=== PATIENT | female | born 1950 | race Two or more races ===

== ENCOUNTER 2022-11-14 08:36 | Day surgery (SDC) | payer OTHER ==
[~2022-11-14] VITALS: Ht 165.1 cm; Wt 83.5 kg
[~2022-11-14 08:36] MED LIST: CLARITIN10 M1 PO; COZAAR50 MG PO; OMEPRA PO; VITAMIN D310 MCG/1 M PO; VITAMIN E400 UNI7 PO
== END 2022-11-14 15:40 | disposition home or self-care (01) ==
LOC: CIR.AMB 08:36
PROVIDERS: ATTEND Obstetrics & Gynecology
DX: C54.1 Malignant neoplasm of endometrium (principal); N84.0 Polyp of corpus uteri; N84.1 Polyp of cervix uteri; N95.0 Postmenopausal bleeding; Z20.822 Contact with and (suspected) exposure to COVID-19; I10 Essential (primary) hypertension

== ENCOUNTER 2023-01-25 15:16 | Outpatient (CLI) | payer OTHER | END 2023-01-25 15:18 | disposition home or self-care (01) | LOC: LAB 15:16 | DX: C54.1 Malignant neoplasm of endometrium (principal) ==

== ENCOUNTER 2023-01-27 07:27 | Outpatient (CLI) | payer OTHER | END 2023-01-27 10:25 | disposition home or self-care (01) | LOC: MRI 07:27 | PROVIDERS: ATTEND Obstetrics & Gynecology Gynecologic Oncology | DX: C54.1 Malignant neoplasm of endometrium (principal) | CPT/HCPCS: 72197; Q9965 ==

== ENCOUNTER 2023-02-03 07:59 | Outpatient (CLI) | payer OTHER | END 2023-02-03 08:08 | disposition home or self-care (01) | LOC: TOM 07:59 | PROVIDERS: ATTEND Obstetrics & Gynecology Gynecologic Oncology | DX: C54.1 Malignant neoplasm of endometrium (principal) | CPT/HCPCS: 71260; 74177; Q9965 ==

== ENCOUNTER 2023-04-06 07:45 | Inpatient (IN) | payer OTHER ==
[~2023-04-06] VITALS: Ht 165.1 cm; Wt 83.5 kg
[2023-04-06] MEDS ORDERED: COZAAR50 MG PO (09:47)
[2023-04-06 10:16] LABS: ALBUMIN 3.4 gm/dL (3.4-5.0); BILIRUBIN TOTAL 0.64 mg/dL (0.3-1.2); CALCIUM 9.2 mg/dL (8.5-10.1); CREATININE SERUM 0.8 mg/dL (0.55-1.02); GFR 70.91; GLOBULINA 4.2 G/DL (2.4-3.5); POTASSIUM 4.55 mEq/L (3.5-5.1); TOTAL PROTEIN 7.6 gm/dL (6.4-8.2)
[2023-04-06 10:19] LABS: INR 0.98; PARTIAL THROMBOPLASTIN TIME 26.3 SECONDS (22.0-34.0); PROTHROMBIN TIME 10.3 SECONDS (9.0-11.5)
[2023-04-13] MEDS ORDERED: LORATADINE10 MG (13:59)
[2023-04-13] MEDS ORDERED: OMEPRAZOLE20 MG (14:16)
[2023-04-13] MEDS ORDERED: ESTROVEN 155 M155 MG (14:17)
[2023-04-13] MEDS ORDERED: VITAMIN D310 MC4 (14:17)
[2023-04-13 19:50] LABS: HEMOGLOBIN 13.3 g/dL (12.0-15.00); MEAN CELL VOLUME 81.7 fL (80.00-100.00); MEAN CORPUSCULAR HEMOGLOBIN 27.3 pg (27.00-32.0); MEAN CORPUSCULAR HGB CONC 33.3 g/dl (32.0-36.0); PLATELET COUNT 317 K/uL (150-450); RED BLOOD COUNT 4.89 M/uL (4.00-6.00); RED CELL DISTRIBUTION WIDTH 14.1 % (11.5-14.5)
[2023-04-13 20:08] LABS: CALCIUM 9.1 mg/dL (8.5-10.1); CREATININE SERUM 1.31 mg/dL (0.55-1.02); GFR 40.14; POTASSIUM 4.47 mEq/L (3.5-5.1)
[2023-04-14 02:42] LABS: HEMATOCRIT 36.6 % (36.0-45.00); HEMOGLOBIN 12.3 g/dL (12.0-15.00); MEAN CELL VOLUME 81.6 fL (80.00-100.00); MEAN CORPUSCULAR HEMOGLOBIN 27.5 pg (27.00-32.0); MEAN CORPUSCULAR HGB CONC 33.7 g/dl (32.0-36.0); PLATELET COUNT 268 K/uL (150-450); RED BLOOD COUNT 4.49 M/uL (4.00-6.00); RED CELL DISTRIBUTION WIDTH 13.8 % (11.5-14.5)
[2023-04-14 02:50] LABS: CALCIUM 8.5 mg/dL (8.5-10.1); CREATININE SERUM 1.29 mg/dL (0.55-1.02); GFR 40.86; POTASSIUM 4.43 mEq/L (3.5-5.1)
== END 2023-04-14 13:44 | disposition home or self-care (01) | DRG 741 ==
LOC: O/R 04-13 06:17 → SURG 04-13 07:45 → OB/GYN 04-13 18:11
PROVIDERS: Obstetrics & Gynecology; ADMIT Obstetrics & Gynecology Gynecologic Oncology; ATTEND Obstetrics & Gynecology Gynecologic Oncology
PROC: 0UT74ZZ Resection of Bilateral Fallopian Tubes, Percutaneous Endoscopic Approach (ICD-10-PCS; 2023-04-13)
PROC: 0UT24ZZ Resection of Bilateral Ovaries, Percutaneous Endoscopic Approach (ICD-10-PCS; 2023-04-13)
PROC: 07BC4ZZ Excision of Pelvis Lymphatic, Percutaneous Endoscopic Approach (ICD-10-PCS; 2023-04-13)
PROC: 0UT94ZZ Resection of Uterus, Percutaneous Endoscopic Approach (ICD-10-PCS; principal; 2023-04-13 17:15)
DX: C54.1 Malignant neoplasm of endometrium (principal); Z20.822 Contact with and (suspected) exposure to COVID-19

== ENCOUNTER 2024-04-03 09:40 | Outpatient (CLI) | payer OTHER ==
[~2024-04-03 09:40] MED LIST changes: +ESTROVEN 155 M155 MG; +LORATADINE10 MG; +OMEPRAZOLE20 MG; +VITAMIN D310 MC4
== END 2024-04-03 09:41 | disposition home or self-care (01) ==
LOC: NUCLEAR 09:40
PROVIDERS: ATTEND Internal Medicine
DX: I35.0 Nonrheumatic aortic (valve) stenosis (principal); I11.9 Hypertensive heart disease without heart failure